=== PATIENT | female | born 1975 | race Asian ===

== ENCOUNTER 2019-04-17 09:58 | Emergency (ER) | payer SELFPAY ==
[~2019-04-17] VITALS: Ht 162.6 cm; Wt 59.9 kg
[2019-04-17 10:04] VITALS: BP 108/57; Ht 162.6 cm; Wt 59.9 kg
== END 2019-04-17 11:31 | disposition home or self-care (01) ==
LOC: ED 09:58
DX: S31.813A Puncture wound without foreign body of right buttock, initial encounter (principal); S71.131A Puncture wound without foreign body, right thigh, initial encounter; Z98.890 Other specified postprocedural states; W54.0XXA Bitten by dog, initial encounter; Y93.89 Activity, other specified; Y92.89 Other specified places as the place of occurrence of the external cause; Y99.8 Other external cause status
CPT/HCPCS: 90715